=== PATIENT | female | born 1940 | race Caucasian/White ===

== ENCOUNTER → 2021-01-06 16:03 | Outpatient (CLI) | payer MEDICARE, SELFPAY ==
--- NOTE | ~2021-01-06 | XR_ITS ---
XR foot RT min 3V DATE: 01/06/2021 16:24 INDICATION: Right foot pain TECHNIQUE: 4 views COMPARISON: None FINDINGS: There is prominent diffuse osteopenia. There is prominent osteophytic change at the first metatarsophalangeal joint. No fracture or dislocation, periosteal reaction or bone destruction is detected. There is concern for any toe fractures, consider individual toe radiographs for more definitive evalu ation. IMPRESSION: Prominent diffuse osteopenia Prominent osteoarthritic change at the first metatarsophalangeal joint Reviewed, dictated and finalized at location B.
== END ==
PROVIDERS: PCP Family Medicine; Visit Provider Family Medicine
DX: M19.071 Primary osteoarthritis, right ankle and foot (principal)
CPT/HCPCS: 73630

== ENCOUNTER 2021-05-01 10:03 | Emergency (ER) | payer MEDICARE, SELFPAY ==
[2021-05-01] VITALS (23 sets, daily range): BP systolic 112–138; BP diastolic 59–101; PULSE 73–90; RESP 15–27; TEMP 36.2; O2SAT 95–99
--- NOTE | ~2021-05-01 | XR_ITS ---
EXAMINATION: XR chest 1V portable INDICATION: Confusion TECHNIQUE: Portable AP chest at 1100 hours COMPARISON: 07/26/2017 FINDINGS: The lungs are free of acute opacities. There is no pleural effusion or pneumothorax. Cardio megaly is noted. The visualized osseous structures are unremarkable. IMPRESSION: 1. Cardiomegaly. Reviewed, dictated and finalized at location A. CTOR REPORT IMPRESSION: 1. Cardiomegaly.
--- NOTE | 2021-05-01 10:29 | ED.GENADULT ---
HPI - General Adult General Chief complaint: Altered Mental Status <Alexandra Almonte PA-C - Last Filed: 05/01/21 13:17> Stated complaint: confusion off and on all week <Alexandra Almonte PA-C - Last Filed: 05/01/21 13:17> Time Seen by Provider: 05/01/21 10:25 <Alexandra Almonte PA-C - Last Filed: 05/01/21 13:17> Source: patient <Alexandra Almonte PA-C - Last Filed: 05/01/21 13:17> Mode of arrival: wheelchair <HUGO Plascencia Last Filed: 05/01/21 13:17> Limitations: no limitations <Alexandra Almonte PA-C - Last Filed: 05/01/21 13:17> History of Present Illness HPI narrative: Patient is brought in by her daughter today when she called her daughter and told her that she could not remember how to get dressed. Her daughter reports that this has been happening off and on for the past several weeks. The patient knows that she is confused, her words to her daughter today were I think I am losing my mind . She denies any other symptoms, no fever, no dysuria, no chest pain no shortness of breath. Daughter reports that she is worse in the morning and is a little clearer as the day goes on but still has some confusion. Patient was quite tearful when she told me she has not slept since losing her last May. <Alexandra Almonte PA-C - Last Filed: 05/01/21 13:17> Related Data Home medications: Home Medications Medication Instructions Recorded Confirmed multivitamin 1 tablet PO DAILY 06/11/20 06/11/20 potassium chloride 10 mEq 20 meq PO DAILY tablet 06/11/20 06/11/20 tablet,extended release simvastatin 20 mg tablet 20 mg PO DAILY 06/11/20 06/11/20 <Alexandra Almonte PA-C - Last Filed: 05/01/21 13:17> Allergies/adverse reactions: Allergies Allergy/AdvReac Type Severity Reaction Status Date / Time adhesive Allergy Mild Unknown Verified 03/16/21 13:27 tolnaftate AdvReac Severe Rash Verified 03/16/21 13:27 <Alexandra Almonte PA-C - Last Filed: 05/01/21 13:17> Review of Systems Review of Systems: All systems reviewed & are unremarkable except as noted in HPI and below <Alexandra Almonte PA-C - Last Filed: 05/01/21 13:17> [facility] Past Medical History Medical History: Medical History Chronic atrial fibrillation Chronic diastolic CHF (congestive heart failure) Encounter for immunization Essential hypertension Mixed hyperlipidemia Prediabetes Stasis dermatitis of both legs <Alexandra Almonte PA-C - Last Filed: 05/01/21 13:17> Surgical History Surgical History: Surgical History H/O resection of large bowel H/O splenectomy H/O: hysterectomy History of ankle surgery Hx of cholecystectomy <Alexandra Almonte PA-C - Last Filed: 05/01/21 13:17> Family History Family History: Family History Father Liver cancer Other Cerebrovascular accident Family history of arthritis <Alexandra Almonte PA-C - Last Filed: 05/01/21 13:17> Social History Social History: Social History Second hand tobacco smoke exposure: No Alcohol intake: never Substance use: never Substance use type: does not use Gender identity (if verbalized by the patient): Female <Alexandra Almonte PA-C - Last Filed: 05/01/21 13:17> Exam Const: General: no acute distress and alert <Alexandra Almonte PA-C - Last Filed: 05/01/21 13:17> Orientation/consciousness: patient oriented x3 <Alexandra Almonte PA-C - Last Filed: 05/01/21 13:17> HENMT: Head: normal to inspection <Alexandra Almonte PA-C - Last Filed: 05/01/21 13:17> Eyes: Conjunctivae: conjunctivae normal <Alexandra Almonte PA-C - Last Filed: 05/01/21 13:17> Pupils: Equal, round and reactive pupils present <Alexandra Almonte PA-C - Last Filed: 05/01/21 13:17> Neck: Neck: no lymphadenopathy
--- NOTE | 2021-05-01 10:40 | ECG_ITS ---
Measurements Intervals [place] Rate: 76 P: AR: 0 QRS: -23 QRSD: 102 T: 129 QT: 426 QTc: 479 Interpretive Statements ATRIAL FIBRILLATION FREQUENT VENTRICULAR PREMATURE COMPLEXES DELAYED PRECORDIAL R/S TRANSITION CONSIDER INFERIOR INFARCT, AGE INDETERMINATE BORDERLINE ST-T WAVE ABNORMALITY- ANT/HIGH LAT LEADS BASELINE ARTIFACT- I, II, III, AVR, AVL, AVF ABNORMAL ECG Electronically Signed On 05-01-2021 11:39:12 CERTIFIED MEETING PROFESSIONAL by Ever Archibald D.O.
[2021-05-01 11:05] LABS: Basophils Absolute Auto 0.1 K/mm3 (0.0-0.1); Basophils Percent Auto 0.6 % (0.2-1.2); Eosinophils Absolute Auto 0.1 K/mm3 (0-0.3); Eosinophils Percent Auto 0.4 % (0-4.4); Hematocrit 37.9 % (37.0-47.0); Hemoglobin 12.7 g/dL (12.0-15.0); Immature Granulocyte Absolute 0.07 K/mm3 (0.00-0.031); Immature Granulocyte Percent A 0.5 % (0-0.5); Lymphocytes Absolute Auto 3.75 K/mm3 (0.9-3.2); Lymphocytes Percent Auto 26.5 % (18.3-44.2); Mean Corpuscular HGB Conc 33.5 g/dl (32-36); Mean Corpuscular Hemoglobin 31.7 pg (26-34); Mean Corpuscular Volume 94.5 fl (80-100); Mean Platelet Volume 9.9 fl (7.4-10.4); Monocytes Absolute Auto 1.3 K/mm3 (0.1-0.6); Monocytes Percent Auto 9.1 % (2.6-8.5); Neutrophils Absolute Auto 8.9 K/mm3 (1.3-6.7); Neutrophils Percent Auto 62.9 % (45.5-73.1); Platelet Count Result 396 k/mm3 (150-375); Red Blood Count 4.01 M/mm3 (4.2-5.4); Red Cell Distribution Width 16.6 % (11.5-14.5); White Blood Count 14.2 K/mm3 (4.5-10.0)
[2021-05-01 11:13] LABS: Add Urine Microscopic? YES; Appearance Urine Cloudy (Clear); Bacteria Urine 3+ /hpf; Bilirubin Urine Negative (Negative); Blood Urine 2+ (Negative); Color Urine Yellow (Yellow); Glucose Urine UA Negative (Negative); Ketones Urine Negative (Negative); Leukocyte Esterase Ur 3+ LEU/UL (Negative); Mucus Urine Rare /lpf; Nitrate Urine Negative (Negative); Protein Urine Negative (Negative); Specific Grav Ur 1.006 (1.001-1.035); Squamous Epithelial Cell Urine Rare /hpf (Few); WBC Urine 21-30 /hpf
[2021-05-01 11:17] LABS: Alanine Aminotransferase 31 U/L (4-35); Albumin Level 3.4 g/dL (3.5-5.1); Alkaline Phosphatase 175 U/L (38-126); Anion Gap 6 mmol/L (8-16); Aspartate Amino Transferase 46 U/L (14-36); Bilirubin,Total 1.3 mg/dL (0.2-1.3); Blood Urea Nitrogen 15 mg/dL (7-17); Calcium 9.9 mg/dL (8.4-10.2); Carbon Dioxide 31 mmol/L (22-30); Chloride 103 mmol/L (98-107); Estimated CRCL calculation 52 ml/min; Estimated Glomerular Filt Rate 60; Glucose 140 mg/dL (65-110); Potassium 3.2 mmol/L (3.4-5.0); Sodium 140 mmol/L (137-145)
--- NOTE | 2021-05-01 13:18 | PCCCNOTE ---
Visited pt and her daughter to see if the patient has any needs prior to discharge. Pt states she has daughters and other family members that come by everyday and help her. She has a wheelchair at home that she uses. Daughter verifies pt has no needs
== END 2021-05-01 13:48 | disposition home or self-care (01) ==
PROVIDERS: Physician Assistant; Emergency Provider Emergency Medicine; PCP Family Medicine
DX: N39.0 Urinary tract infection, site not specified (principal); I48.20 Chronic atrial fibrillation, unspecified; I11.0 Hypertensive heart disease with heart failure; I50.32 Chronic diastolic (congestive) heart failure; E78.2 Mixed hyperlipidemia; R73.03 Prediabetes; Z90.81 Acquired absence of spleen
CPT/HCPCS: 36415; 51701; 71045; 80053; 81001; 85025; 87086; 87088; 93005; 96365; 99284; J0696

== ENCOUNTER 2021-05-17 10:35 | Inpatient (IN) | payer MEDICARE, SELFPAY ==
--- NOTE | ~2021-05-17 | CT_ITS ---
EXAMINATION: CT brain wo con INDICATION: Altered mental status COMPARISON: 10/12/2011 TECHNIQUE: Standard unenhanced head CT. The dose-length product (DLP) was 681.00 mGy-cm. The mA was a djusted according to patient size. Iterative reconstruction technique was employed. FINDINGS: There is no acute intraparenchymal hemorrhage. No evidence of mass lesion. No evidence of a cute infarction. Old cerebellar There is extensive periventricular and subcortical hypodensity probab ly related to small vessel ischemic disease. There is mild prominence of the sulci and ventricles rel ated to cerebral atrophy. Intracranial calcified cerebral atherosclerosis is noted. There are no extr a-axial collections. There is no mass effect or midline shift. The orbits and soft tissues are unrema rkable. There is mild mucosal thickening of the paranasal sinuses. IMPRESSION: 1. No acute intracranial abnormality. 2. Age related findings. Reviewed, dictated and finalized at location A. FEEDER
--- NOTE | ~2021-05-17 | US_ITS ---
EXAMINATION: US abdomen limited EXAM DATE: 05/18/2021 08:56 INDICATION: Elevated liver function tests. TECHNIQUE: Multiple grayscale and Doppler images of the abdomen right upper quadrant were obtained (alicia y a technologist who performed the scan) and subsequently reviewed. Comparison is made to prior exami nation from 07/22/2017. FINDINGS: The pancreatic head and body are normal in appearance. The pancreatic tail is not visualized. Regio ns of liver surface undulations without armando nodularity. There are no focal liver lesions identifie d. There is no evidence of intrahepatic biliary duct dilation. Portal venous flow was seen in the hepatopedal, normal direction and has normal Doppler waveform. No right-sided hydronephrosis. Common bile duct measures 4 mm, which is normal. The gallbladder fossa is unremarkable. IMPRESSION: Liver surface undulations without armando nodularity. Possible cirrhosis. Reviewed, dictated and finalized at location B. RNET [employer]ER[employer] SPECIALIST IMPRESSION: Liver surface undulations without armando nodularity. Possible cirrho sis.
--- NOTE | ~2021-05-17 | XR_ITS ---
EXAMINATION: XR shoulder LT min 2V DATE: 05/19/2021 16:22 INDICATION: Left shoulder injury and pain. TECHNIQUE: 3 views of left shoulder were obtained. COMPARISON: None. FINDINGS: Bone alignment is normal. No fracture. There is mild osteoarthritis of glenohumeral joint a nd severe osteoarthritis of acromioclavicular joint. Cardiomegaly is noted. IMPRESSION: 1. Polyarticular osteoarthritis. Reviewed, dictated and finalized at location A. SCALER
--- NOTE | ~2021-05-17 | CT_ITS ---
EXAMINATION: CT abdomen pelvis wo con DATE: 05/19/2021 11:09 INDICATION: Abdominal pain. Leukocytosis. TECHNIQUE: Computed tomography (CT) of the abdomen and pelvis was performed without intravenous contr ast. Automated exposure control and iterative reconstruction technique were employed. The dose-length product was 1614.51 mGy-cm. COMPARISON: CT abdomen and pelvis 08/03/2017 FINDINGS: The visualized portions of the lung bases demonstrate small pleural effusions, right worse than left. There is mild atelectasis bilaterally. Cardiomegaly is noted. No pericardial effusion. The liver is normal. There are changes of cholecystectomy. The spleen is absent. The pancreas and right adrenal gland are normal. 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 There is a 4 mm stone in right kidney. There is a 2.0 cm stone in left kidney. There are multiple diverticula in the bladder. There is diverticulosis of the colon without evidence of diverticulitis. There are no dilated loops of bowel. The appendix is normal. There are no patholog ically enlarged lymph nodes. There is no free intraperitoneal fluid. There is a chronic burst fractur e of L1. There is a chronic compression fracture of L4. There is moderate lumbar spondylosis. IMPRESSION: 1. Small pleural effusions. 2. Bilateral nonobstructing kidney stones. Reviewed, dictated and finalized at location A. EMENTATION CONSULTANT
[2021-05-17 10:38] VITALS: BP 121/62; PULSE 92; RESP 16; TEMP 36; O2SAT 100
[2021-05-17] MEDS: SODIUM CHLORIDE 0.9% IV 1,000 ML 999 ML IV CONT (12:47)
[2021-05-17 12:50] LABS: Basophils Absolute Auto 0.1 K/mm3 (0.0-0.1); Basophils Percent Auto 0.4 % (0.2-1.2); Eosinophils Percent Auto 0.1 % (0-4.4); Hematocrit 34.1 % (37.0-47.0); Hemoglobin 11.3 g/dL (12.0-15.0); Immature Granulocyte Absolute 0.09 K/mm3 (0.00-0.031); Immature Granulocyte Percent A 0.5 % (0-0.5); Lymphocytes Absolute Auto 1.91 K/mm3 (0.9-3.2); Lymphocytes Percent Auto 11.2 % (18.3-44.2); Mean Corpuscular HGB Conc 33.1 g/dl (32-36); Mean Corpuscular Hemoglobin 30.8 pg (26-34); Mean Corpuscular Volume 92.9 fl (80-100); Monocytes Absolute Auto 1.7 K/mm3 (0.1-0.6); Monocytes Percent Auto 9.9 % (2.6-8.5); Neutrophils Absolute Auto 13.3 K/mm3 (1.3-6.7); Neutrophils Percent Auto 77.9 % (45.5-73.1); Platelet Count Result 386 k/mm3 (150-375); Red Blood Count 3.67 M/mm3 (4.2-5.4); Red Cell Distribution Width 16.5 % (11.5-14.5); White Blood Count 17.1 K/mm3 (4.5-10.0)
[2021-05-17 12:56] LABS: Add Urine Microscopic? YES; Appearance Urine Cloudy (Clear); Bacteria Urine Trace /hpf; Bilirubin Urine Negative (Negative); Blood Urine 3+ (Negative); Color Urine Amber (Yellow); Glucose Urine UA Negative (Negative); Ketones Urine Negative (Negative); Leukocyte Esterase Ur 2+ LEU/UL (Negative); Mucus Urine Heavy /lpf; Nitrate Urine Negative (Negative); Protein Urine 2+ mg/dL (Negative); RBC Urine >75 /hpf (0-2); Specific Grav Ur 1.009 (1.001-1.035); WBC Urine >75 /hpf
[2021-05-17 13:00] LABS: Alanine Aminotransferase 36 U/L (4-35); Albumin Level 3.3 g/dL (3.5-5.1); Alkaline Phosphatase 142 U/L (38-126); Anion Gap 9 mmol/L (8-16); Aspartate Amino Transferase 83 U/L (14-36); Bilirubin,Total 1.9 mg/dL (0.2-1.3); Blood Urea Nitrogen 22 mg/dL (7-17); Calcium 9.1 mg/dL (8.4-10.2); Carbon Dioxide 23 mmol/L (22-30); Chloride 101 mmol/L (98-107); Estimated CRCL calculation 28 ml/min; Estimated Glomerular Filt Rate 29; Glucose 136 mg/dL (65-110); Potassium 3.1 mmol/L (3.4-5.0); Sodium 133 mmol/L (137-145)
[2021-05-17 13:15] VITALS: BP 126/70; PULSE 79; RESP 18; O2SAT 97
--- NOTE | 2021-05-17 13:47 | ED.WEAKNESS ---
HPI - Weakness General Chief complaint: Weakness Stated complaint: uti x 2 weeks Time Seen by Provider: 05/17/21 12:03 History of Present Illness HPI Narrative: Patient is an 81-year-old female who presents ER with altered mental status and concerns for UTI by family. Patient has recently been treated for UTI but she seems to be getting worse. She is not eating or drinking. She is urinating on herself. She has become more confused. Patient did fall out of her bed today.. No fevers or chills or sweats. Patient cannot provide history. Related Data Home Medications Medication Instructions Recorded Confirmed multivitamin 1 tablet PO DAILY 06/11/20 05/08/21 potassium chloride 10 mEq 20 meq PO DAILY tablet 06/11/20 05/08/21 tablet,extended release simvastatin 20 mg tablet 20 mg PO DAILY 06/11/20 05/08/21 Allergies Allergy/AdvReac Type Severity Reaction Status Date / Time adhesive Allergy Mild Unknown Verified 05/08/21 11:49 tolnaftate AdvReac Severe Rash Verified 05/08/21 11:49 Review of Systems Review of Systems: ROS unobtainable: Yes unobtainable due to mental status [facility] Past Medical History Medical History (Updated 05/17/21 @ 17:03 by Tracey Dunaway PA-C) Chronic anticoagulation Chronic atrial fibrillation Chronic diastolic CHF (congestive heart failure) Coronary artery disease Essential hypertension History of bleeding peptic ulcer (2006) Mixed hyperlipidemia Prediabetes Hemoglobin A1c was 5.8% in December 2020. Stasis dermatitis of both legs Surgical History Surgical History (Updated 05/17/21 @ 16:59 by Tracey Dunaway PA-C) History of cholecystectomy (2017) History of heart artery stent (2003) History of open reduction and internal fixation (ORIF) procedure (2011) Left ankle fracture. History of resection of small bowel (1973) Jejunal resection. History of splenectomy (1944) History of total abdominal hysterectomy and bilateral salpingo-oophorectomy (1979) Family History Family History Father Liver cancer Mother Congestive heart failure Other Cerebrovascular accident Family history of arthritis Social History Social History (Updated 05/17/21 @ 16:58 by Tracey Dunaway PA-C) Social History: Surrogate decision maker: Darcy Vogeler, daughter. Code status: Full code. Smoking status: Never smoker Second hand tobacco smoke exposure: No Alcohol intake: never Substance use: never Substance use type: does not use Additional living arrangements comments: The patient lives in her own home. She has 3 children. Additional occupation/education comments: Retired. Spiritual care concerns: No Exam Narrative: GENERAL: Chronically ill-appearing, well-nourished, and in no acute distress. HEAD: Normocephalic, atraumatic. EYES: PERRL and EOMI. ENT: Mucous membranes moist. CHEST: Clear to auscultation. No respiratory distress. HEART: Regular rate and rhythm. Normal peripheral pulses. ABDOMEN: Soft, nontender, nondistended. EXTREMITIES: Normal range of motion. No edema. SKIN: Warm, dry, no rash. NEURO: Alert and oriented x1. Course Course Emergency Course: Admit to hospitalist service. Will start on ceftriaxone. Patient will be hydrated. Family informed of diagnosis and treatment plan. Vital Signs Vital signs: Vital Signs Temperature 96.8 F L 05/17/21 10:38 Pulse Rate 92 05/17/21 10:38 Respiratory Rate 16 05/17/21 10:38 Blood Pressure 121/62 05/17/21 10:38 Pulse Oximetry 100 05/17/21 10:38 Temperature 96.7 F L 05/17/21 21:38 Pulse Rate 79 05/17/21 21:38 Respiratory Rate 14 05/17/21 21:38 Blood Pressure 113/52 L 05/17/21 21:38 Pulse Oximetry 95 05/17/21 21:38 MDM - Weakness Lab Data Result diagrams: 05/17/21 12:42 05/17/21 17:24 Labs: Lab Results 05/17/21 05/17/21 05/17/21 Range/Units 12:42 12:42 12:4
[2021-05-17 15:00] VITALS: BP 120/74; PULSE 89; RESP 20; O2SAT 100
[2021-05-17 15:09] LABS: INR 1.8; Partial Thromboplastin Time 37.1 SECONDS (22.3-36.8); Prothrombin Time 20.1 Seconds (11.1-14.7)
--- NOTE | 2021-05-17 16:15 | PM.IMHP ---
H&P: HPI History of Present Illness Date/Time: 05/17/21 16:15 Chief Complaint: Weakness. Narrative: This is an 81-year-old female with atrial fibrillation, congestive heart failure, hypertension, coronary artery disease, and several other comorbidities who presented to the emergency department earlier today via EMS from home for evaluation of generalized weakness. The patient is also somewhat confused with regards to the events that happened today and as such some of the following is supplemented via a review of her electronic medical records. The patient lives in her own home and she was found lying on the floor by her bed by family members. She was too weak to get herself up and was reportedly quite confused and thus she was brought in for evaluation. The patient does not really remember this but she does mention having urinary symptoms for the last couple of weeks and in fact she was seen in the emergency department on 05/01/2021 at which time she had an abnormal urinalysis. She was discharged on nitrofurantoin which she completed however her symptoms never really improved. It should be noted that her urine culture grew out mixed lamar suggesting probable contamination. In any event, she has been feeling weak since that time with a poor appetite though she denies nausea and vomiting. She does not recall how she ended up on the ground today though she does not think that she fell. At the time my evaluation she reports feeling a bit better and she has no complaints. Review of Systems Review of Systems: Twelve systems were reviewed. Denies fever, chills, and sweats. No headache or vertigo. She denies focal weakness and paresthesias. No cold or flu symptoms. She denies cough and shortness of breath. No chest pain or pleuritic pain. She has had a decrease in appetite but denies nausea and vomiting. She also denies diarrhea. She has chronic lower extremity edema with erythema and blistering which she does not believes any worse than usual. Except as documented, all other systems were reviewed and are negative. [facility] Past Medical History Medical History Chronic anticoagulation Chronic atrial fibrillation Chronic diastolic CHF (congestive heart failure) Coronary artery disease Essential hypertension History of bleeding peptic ulcer (2006) Mixed hyperlipidemia Prediabetes Hemoglobin A1c was 5.8% in December 2020. Stasis dermatitis of both legs Surgical History Surgical History (Updated 05/17/21 @ 16:59 by Tracey Dunaway PA-C) History of cholecystectomy (2018) History of heart artery stent (2003) History of open reduction and internal fixation (ORIF) procedure (2011) Left ankle fracture. History of resection of small bowel (1973) Jejunal resection. History of splenectomy (1944) History of total abdominal hysterectomy and bilateral salpingo-oophorectomy (1979) Family History Family History Father Liver cancer Mother Congestive heart failure Other Cerebrovascular accident Family history of arthritis Social History Social History (Updated 05/17/21 @ 23:24 by Tracey Dunaway PA-C) Social History: Surrogate decision maker: Darcy Lackey, daughter. Code status: Full code. Smoking status: Never smoker Second hand tobacco smoke exposure: No Alcohol intake: never Substance use: never Substance use type: does not use Additional living arrangements comments: The patient lives in her own home. She has 3 children. Additional occupation/education comments: Retired. Spiritual care concerns: No Meds Home Medications and Allergies Home Medications Medication Instructions Recorded Confirmed Type multivitamin 1 tablet PO DAILY 06/11/20 05/08/21 History potassium chloride 10 mEq 20 meq PO DAILY tablet 06/11/20 05/08/21 History tablet,extended release simvastatin 20 mg table
[2021-05-17 17:24] VITALS: BP 111/49; PULSE 89; RESP 18; TEMP 36.3; O2SAT 96
[2021-05-17 17:42] LABS: Lactic Acid Reflex 1.7 mmol/L (0.7-2.1)
[2021-05-17 17:43] LABS: Anion Gap 6 mmol/L (8-16); Blood Urea Nitrogen 19 mg/dL (7-17); Calcium 8.6 mg/dL (8.4-10.2); Carbon Dioxide 25 mmol/L (22-30); Chloride 104 mmol/L (98-107); Creatine Kinase 631 U/L (30-135); Estimated CRCL calculation 35 ml/min; Estimated Glomerular Filt Rate 39; Glucose 143 mg/dL (65-110); Magnesium 1.7 mg/dL (1.6-2.3); Potassium 3.4 mmol/L (3.4-5.0); Sodium 135 mmol/L (137-145)
--- NOTE | 2021-05-17 17:57 | ADMGEN ---
This patient, Evelyn Gale, was admitted to Medical Room 345-01. Patient/family oriented to hospital policies and general routines including ID bracelet, bed and alarms, visiting hours, pain management, procedures, bathroom and other care routines, personal items, smoking policy, room service/diet, and visiting hours. Information on how to activate the Rapid Response Team has been discussed. Patient/Family are encouraged to report perceived risks to care and to ask questions if they do not understand what they are told or what they should do.
[2021-05-17 18:40] LABS: Vitamin B12 > 1000.0 pg/mL (239-931)
--- NOTE | 2021-05-17 18:57 | PC.NURSE ---
Pharmacy is closed can't verify home medications, patient is alert to self. Unable to give me correct info.
[2021-05-17] MEDS: SODIUM CHLORIDE 0.9% IV 1,000 ML 100 ML IV CONT (19:04)
[2021-05-17 20:00] VITALS: PULSE 89; RESP 18; O2SAT 96
[2021-05-17 21:38] VITALS: BP 113/52; PULSE 79; RESP 14; TEMP 35.9; O2SAT 95
[2021-05-18] MEDS: SODIUM CHLORIDE 0.9% IV 1,000 ML 100 ML IV CONT (04:50)
[2021-05-18 06:00] VITALS: BP 118/60; PULSE 82; RESP 16; TEMP 36; O2SAT 96
[2021-05-18 07:50] LABS: Hematocrit 34.5 % (37.0-47.0); Hemoglobin 10.7 g/dL (12.0-15.0); Mean Corpuscular Hemoglobin 31.8 pg (26-34); Mean Corpuscular Volume 102.4 fl (80-100); Platelet Count Result 308 k/mm3 (150-375); Red Blood Count 3.37 M/mm3 (4.2-5.4); Red Cell Distribution Width 17.7 % (11.5-14.5); White Blood Count 10.3 K/mm3 (4.5-10.0)
[2021-05-18 08:18] LABS: Alanine Aminotransferase 32 U/L (4-35); Albumin Level 2.4 g/dL (3.5-5.1); Alkaline Phosphatase 117 U/L (38-126); Anion Gap 5 mmol/L (8-16); Aspartate Amino Transferase 78 U/L (14-36); Bilirubin,Total 1.4 mg/dL (0.2-1.3); Blood Urea Nitrogen 14 mg/dL (7-17); Calcium 8.2 mg/dL (8.4-10.2); Carbon Dioxide 23 mmol/L (22-30); Chloride 110 mmol/L (98-107); Creatine Kinase 403 U/L (30-135); Estimated CRCL calculation 56 ml/min; Estimated Glomerular Filt Rate > 60; Glucose 102 mg/dL (65-110); Magnesium 1.7 mg/dL (1.6-2.3); Phosphorus 3.4 mg/dL (2.5-4.5); Potassium 3.3 mmol/L (3.4-5.0); Sodium 138 mmol/L (137-145)
--- NOTE | 2021-05-18 08:27 | PCOTNOTE ---
Attempted to evaluate for occupational therapy. Pt. leaving for CT scan. Will follow-up when available
[2021-05-18 09:22] LABS: Hepatitis B Surface Antigen Negative (Negative)
[2021-05-18 09:28] LABS: HAV RESULT Negative (Negative); Hepatitis B Core IgM Result Negative (Negative)
[2021-05-18 09:39] LABS: Hepatitis C Virus Antibody Negative (Negative)
[2021-05-18] MEDS: amLODIPine BESYLATE 5 MG TABLET 10 MG PO (10:00)
[2021-05-18] MEDS: MULTIVITAMINS THERAPEUTIC TAB (*BKC) 1 TABLET PO (10:00)
[2021-05-18] MEDS: APIXABAN 5 MG TABLET PO ×2 (10:00→17:21)
[2021-05-18] MEDS: FUROSEMIDE 40 MG TABLET PO (10:00)
[2021-05-18] MEDS: SIMVASTATIN 20 MG TABLET PO (10:01)
[2021-05-18] MEDS: NEBIVOLOL HCL 5 MG TABLET PO (10:01)
[2021-05-18] MEDS: PANTOPRAZOLE 40 MG TABLET PO (10:01)
[2021-05-18] MEDS: TAMSULOSIN HCL 0.4 MG CAPSULE PO (10:01)
[2021-05-18] MEDS: POTASSIUM CHLORIDE 10 MEQ TABLET.ER 20 MEQ PO ×2 (10:01→17:21)
--- NOTE | 2021-05-18 10:11 | PM.IMPN ---
Progress Note: A&P Assessment and Plan (1) Urinary tract infection: Code(s): N39.0 - Urinary tract infection, site not specified Status: Acute Assessment and Plan: UA consistent with UTI -continue ceftriaxone -monitor urine cultures and adjust therapy as needed -will likely be able to discharge when this is back to ensure she is on appropriate antibiotics since she also had symptoms last month of this with no resolution with Macrobid (2) Acute kidney injury: Code(s): N17.9 - Acute kidney failure, unspecified Status: Acute Assessment and Plan: Noted on labs and resolved with IV fluids - CK improving, will stop IV fluids and encourage oral hydration - no abdominal pain or flank pain suggesting pyelonephritis - could be due to decreased oral intake and worsened with Lasix (3) Elevated LFTs: Code(s): R79.89 - Other specified abnormal findings of blood chemistry Status: Acute Assessment and Plan: Improved -ultrasound shows possible cirrhosis -could be acutely elevated due to elevated CK - no abdominal pain - hepatitis negative (4) Dehydration: Code(s): E86.0 - Dehydration Status: Acute Assessment and Plan: resolved (5) Essential hypertension: Code(s): I10 - Essential (primary) hypertension Status: Acute Assessment and Plan: last blood pressure 118/60 - continue amlodipine, Lasix and Bystolic (6) Chronic anticoagulation: Code(s): Z79.01 - medical terminologist (current) use of anticoagulants Status: Acute Assessment and Plan: Continue apixaban. (7) Chronic diastolic CHF (congestive heart failure): Code(s): I50.32 - Chronic diastolic (congestive) heart failure Status: Acute Assessment and Plan: euvolemic (8) Rhabdomyolysis: Code(s): M62.82 - Rhabdomyolysis Status: Acute Assessment and Plan: CK improving (9) Left leg cellulitis: Code(s): L03.116 - Cellulitis of left lower limb Status: Acute Assessment and Plan: previous provider noted worsening erythema to the left leg which apparently has resolved back to her baseline as both of her legs appear slightly erythematous but she said this is better than it has been - continue ceftriaxone (10) Metabolic encephalopathy: Code(s): G93.41 - Metabolic encephalopathy Status: Acute Assessment and Plan: resolved.Secondary to infection and dehydration. 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 She says she cries every day. She is absolutely not interested in any type of therapy. She has tried BuSpar but I do not think it really helped according to the patient. I would follow-up with Dr. Pickens, her primary care physician, and possibly some consider starting citalopram or another SSRI since she is uninterested in doing therapy which would be her best bet. She has good family support. (12) Chronic atrial fibrillation: Code(s): I48.20 - Chronic atrial fibrillation, unspecified Status: Acute Assessment and Plan: Chronic and rate controlled -continue bystolic and eliquis Time Spent With Patient Time with patient: 25 - 35 minutes Subjective Date/time seen: 05/18/21 10:11 Interval history: Pt is a 81-year-old female here for fall and UTI. patient was seen today and states that she is feeling okay. She is able to transfer with therapy today and feels like she is at her baseline. She is sad today, and every day, about her dying. She says that she often sees him in the room and hears her him. She sometimes does not realize it is not reality and will try and go to his chair. She thin
[2021-05-18 14:00] VITALS: BP 117/73; PULSE 68; RESP 16; TEMP 35.9; O2SAT 96
[2021-05-18] MEDS: busPIRone HCL 5 MG TABLET PO (17:31)
[2021-05-18 21:04] VITALS: BP 99/54; PULSE 75; RESP 16; TEMP 36; O2SAT 95
[2021-05-19] MEDS: busPIRone HCL 5 MG TABLET PO (00:28)
[2021-05-19 03:25] VITALS: BP 120/65; PULSE 75; RESP 16; TEMP 35.9; O2SAT 97
[2021-05-19 05:58] LABS: Basophils Absolute Auto 0.1 K/mm3 (0.0-0.1); Basophils Percent Auto 0.7 % (0.2-1.2); Eosinophils Absolute Auto 0.3 K/mm3 (0-0.3); Eosinophils Percent Auto 1.9 % (0-4.4); Hematocrit 32.3 % (37.0-47.0); Hemoglobin 10.7 g/dL (12.0-15.0); Immature Granulocyte Absolute 0.12 K/mm3 (0.00-0.031); Immature Granulocyte Percent A 0.9 % (0-0.5); Lymphocytes Absolute Auto 4.02 K/mm3 (0.9-3.2); Lymphocytes Percent Auto 28.6 % (18.3-44.2); Mean Corpuscular HGB Conc 33.1 g/dl (32-36); Mean Corpuscular Hemoglobin 30.8 pg (26-34); Mean Corpuscular Volume 93.1 fl (80-100); Mean Platelet Volume 9.8 fl (7.4-10.4); Monocytes Absolute Auto 1.9 K/mm3 (0.1-0.6); Monocytes Percent Auto 13.7 % (2.6-8.5); Neutrophils Absolute Auto 7.6 K/mm3 (1.3-6.7); Neutrophils Percent Auto 54.2 % (45.5-73.1); Nucleated Red Blood Cells Perc 0.2 % (0.0-0.2); Platelet Count Result 390 k/mm3 (150-375); Red Blood Count 3.47 M/mm3 (4.2-5.4); Red Cell Distribution Width 17.1 % (11.5-14.5); White Blood Count 14.1 K/mm3 (4.5-10.0)
[2021-05-19 06:14] LABS: Alanine Aminotransferase 35 U/L (4-35); Albumin Level 2.7 g/dL (3.5-5.1); Alkaline Phosphatase 130 U/L (38-126); Anion Gap 4 mmol/L (8-16); Aspartate Amino Transferase 67 U/L (14-36); Blood Urea Nitrogen 13 mg/dL (7-17); Calcium 8.2 mg/dL (8.4-10.2); Carbon Dioxide 24 mmol/L (22-30); Chloride 106 mmol/L (98-107); Creatine Kinase 200 U/L (30-135); Estimated CRCL calculation 56 ml/min; Estimated Glomerular Filt Rate > 60; Glucose 131 mg/dL (65-110); Potassium 3.4 mmol/L (3.4-5.0); Sodium 134 mmol/L (137-145)
[2021-05-19] MEDS: ACETAMINOPHEN 325 MG TABLET 650 MG PO (07:56)
[2021-05-19] MEDS: amLODIPine BESYLATE 5 MG TABLET 10 MG PO (08:14)
[2021-05-19 08:15] VITALS: PULSE 86
[2021-05-19] MEDS: FUROSEMIDE 40 MG TABLET PO (08:15)
[2021-05-19] MEDS: NEBIVOLOL HCL 5 MG TABLET PO (08:15)
[2021-05-19] MEDS: APIXABAN 5 MG TABLET PO ×2 (08:15→16:27)
[2021-05-19] MEDS: MULTIVITAMINS THERAPEUTIC TAB (*BKC) 1 TABLET PO (08:15)
[2021-05-19] MEDS: PANTOPRAZOLE 40 MG TABLET PO (08:16)
[2021-05-19] MEDS: POTASSIUM CHLORIDE 10 MEQ TABLET.ER 20 MEQ PO ×2 (08:16→16:27)
[2021-05-19] MEDS: SIMVASTATIN 20 MG TABLET PO (08:17)
[2021-05-19] MEDS: TAMSULOSIN HCL 0.4 MG CAPSULE PO (08:17)
--- NOTE | 2021-05-19 11:51 | PM.IMPN ---
Progress Note: A&P Assessment and Plan (1) Urinary tract infection: Code(s): N39.0 - Urinary tract infection, site not specified Status: Acute Assessment and Plan: UA consistent with UTI -urine cx growing mixed lamar but it has no squamous cells and looks very infectious. I have called the lab and asked them to grow it out since her WBC went up today. Blood cultures with NGTD. -continue ceftriaxone -will likely be able to discharge when this is back to ensure she is on appropriate antibiotics since she also had symptoms last month of this with no resolution with Macrobid (2) Acute kidney injury: Code(s): N17.9 - Acute kidney failure, unspecified Status: Acute Assessment and Plan: Noted on labs and resolved with IV fluids - CK improving, continue oral hydration - no abdominal pain or flank pain suggesting pyelonephritis - could be due to decreased oral intake and worsened with Lasix (3) Elevated LFTs: Code(s): R79.89 - Other specified abnormal findings of blood chemistry Status: Acute Assessment and Plan: Improved -ultrasound shows possible cirrhosis -could be acutely elevated due to elevated CK - no abdominal pain - hepatitis negative (4) Dehydration: Code(s): E86.0 - Dehydration Status: Acute Assessment and Plan: resolved (5) Essential hypertension: Code(s): I10 - Essential (primary) hypertension Status: Acute Assessment and Plan: last blood pressure 120/65 - continue amlodipine, Lasix and Bystolic (6) Chronic anticoagulation: Code(s): Z79.01 - custodial (current) use of anticoagulants Status: Acute Assessment and Plan: Continue apixaban. (7) Chronic diastolic CHF (congestive heart failure): Code(s): I50.32 - Chronic diastolic (congestive) heart failure Status: Acute Assessment and Plan: euvolemic (8) Rhabdomyolysis: Code(s): M62.82 - Rhabdomyolysis Status: Acute Assessment and Plan: CK improving (9) Left leg cellulitis: Code(s): L03.116 - Cellulitis of left lower limb Status: Acute Assessment and Plan: previous provider noted worsening erythema to the left leg which apparently has resolved back to her baseline as both of her legs appear slightly erythematous but she said this is better than it has been - continue ceftriaxone (10) Metabolic encephalopathy: Code(s): G93.41 - Metabolic encephalopathy Status: Acute Assessment and Plan: resolved.Secondary to infection and dehydration. 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 She says she cries every day. Yesterday she said she was not interested in therapy but when talking today to her she may consider contacting a therapist over the phone so she doesn't have to leave her house. She has tried BuSpar but I do not think it really helped according to the patient. She does not want to try any other medications. I would follow-up with Dr. Pickens, her primary care physician, and possibly some consider starting citalopram or another SSRI if she won't do therapy or maybe in addition to therapy. (12) Chronic atrial fibrillation: Code(s): I48.20 - Chronic atrial fibrillation, unspecified Status: Acute Assessment and Plan: Chronic and rate controlled -continue bystolic and eliquis Subjective Date/time seen: 05/19/21 11:51 Interval history: Pt is a 81-year-old female here for fall and UTI. patient was seen today with family at bedside and is doing okay. Her dysuria has resolved and she doesn't remember telling me it hurt yesterday. She has no fevers, chills, nausea, vomi
[2021-05-19 14:00] VITALS: BP 117/68; PULSE 68; RESP 18; TEMP 36.1; O2SAT 96
[2021-05-19 20:00] VITALS: PULSE 68; RESP 18; O2SAT 96
[2021-05-19 20:52] LABS: Glucose Point of Care 149 mg/dl (65-105)
[2021-05-19 22:00] VITALS: BP 118/64; PULSE 72; RESP 18; TEMP 36.1; O2SAT 96
[2021-05-20] MEDS: ACETAMINOPHEN 325 MG TABLET 650 MG PO ×2 (04:41→14:26)
[2021-05-20 05:16] VITALS: BP 134/71; PULSE 77; RESP 16; TEMP 36.6; O2SAT 93
[2021-05-20 06:35] LABS: Basophils Absolute Auto 0.1 K/mm3 (0.0-0.1); Basophils Percent Auto 0.7 % (0.2-1.2); Eosinophils Absolute Auto 0.3 K/mm3 (0-0.3); Hematocrit 34.1 % (37.0-47.0); Hemoglobin 11.1 g/dL (12.0-15.0); Immature Granulocyte Absolute 0.09 K/mm3 (0.00-0.031); Immature Granulocyte Percent A 0.7 % (0-0.5); Lymphocytes Absolute Auto 2.51 K/mm3 (0.9-3.2); Lymphocytes Percent Auto 18.1 % (18.3-44.2); Mean Corpuscular HGB Conc 32.6 g/dl (32-36); Mean Corpuscular Hemoglobin 30.8 pg (26-34); Mean Corpuscular Volume 94.7 fl (80-100); Mean Platelet Volume 10.1 fl (7.4-10.4); Monocytes Absolute Auto 1.8 K/mm3 (0.1-0.6); Monocytes Percent Auto 12.7 % (2.6-8.5); Neutrophils Absolute Auto 9.1 K/mm3 (1.3-6.7); Neutrophils Percent Auto 65.8 % (45.5-73.1); Nucleated Red Blood Cells Perc 0.3 % (0.0-0.2); Platelet Count Result 409 k/mm3 (150-375); Red Cell Distribution Width 17.2 % (11.5-14.5); White Blood Count 13.8 K/mm3 (4.5-10.0)
[2021-05-20 07:09] LABS: Alanine Aminotransferase 35 U/L (4-35); Albumin Level 2.7 g/dL (3.5-5.1); Alkaline Phosphatase 117 U/L (38-126); Anion Gap 5 mmol/L (8-16); Aspartate Amino Transferase 68 U/L (14-36); Bilirubin,Total 1.2 mg/dL (0.2-1.3); Blood Urea Nitrogen 10 mg/dL (7-17); Calcium 7.9 mg/dL (8.4-10.2); Carbon Dioxide 24 mmol/L (22-30); Chloride 108 mmol/L (98-107); Estimated CRCL calculation 73 ml/min; Estimated Glomerular Filt Rate > 60; Glucose 121 mg/dL (65-110); Magnesium 1.5 mg/dL (1.6-2.3); Sodium 137 mmol/L (137-145)
[2021-05-20] MEDS: MAGNESIUM SULF 2 GM/WATER 50ML 2 GM/50 ML BAG IVPB (07:28)
--- NOTE | 2021-05-20 08:19 | PCOTNOTE ---
Attempted to see patient this date at 08:16am. Patient asleep upon arrival, patient easily awoke upon knocking. Patient was surprised breakfast was here already. Patient able to bring all food to mouth and feed self with set up. Declined all ADLs. Asked CANDE to put butter and jelly on wolof muffin and make her hot armani. Patient confused this date I'm just talking to my daughter, seeing if shes going into work then turned her head and talked to an empty chair. Nursing aware.
[2021-05-20] MEDS: TAMSULOSIN HCL 0.4 MG CAPSULE PO (09:01)
[2021-05-20] MEDS: POTASSIUM CHLORIDE 10 MEQ TABLET.ER 20 MEQ PO ×2 (09:01→16:22)
[2021-05-20 09:02] VITALS: PULSE 78
[2021-05-20] MEDS: FUROSEMIDE 40 MG TABLET PO (09:02)
[2021-05-20] MEDS: APIXABAN 5 MG TABLET PO ×2 (09:02→16:22)
[2021-05-20] MEDS: MULTIVITAMINS THERAPEUTIC TAB (*BKC) 1 TABLET PO (09:02)
[2021-05-20] MEDS: SIMVASTATIN 20 MG TABLET PO (09:02)
[2021-05-20] MEDS: NEBIVOLOL HCL 5 MG TABLET PO (09:02)
[2021-05-20] MEDS: PANTOPRAZOLE 40 MG TABLET PO (09:02)
[2021-05-20] MEDS: amLODIPine BESYLATE 5 MG TABLET 10 MG PO (09:03)
--- NOTE | 2021-05-20 12:01 | PM.IMPN ---
Progress Note: A&P Assessment and Plan (1) Urinary tract infection: Code(s): N39.0 - Urinary tract infection, site not specified Status: Acute Assessment and Plan: UA consistent with UTI -urine cx growing mixed lamar but it has no squamous cells and looks very infectious. I called lab and they state that it is growing Klebsiella and Proteus and the sensitivities will be back tomorrow. -continue ceftriaxone - Will likely discharge home tomorrow once sensitivities have been posted (2) Acute kidney injury: Code(s): N17.9 - Acute kidney failure, unspecified Status: Acute Assessment and Plan: Noted on labs and resolved with IV fluids - CK improving, continue oral hydration - no abdominal pain or flank pain suggesting pyelonephritis - could be due to decreased oral intake and worsened with Lasix (3) Elevated LFTs: Code(s): R79.89 - Other specified abnormal findings of blood chemistry Status: Acute Assessment and Plan: Improved -ultrasound shows possible cirrhosis -could be acutely elevated due to elevated CK - no abdominal pain - hepatitis negative (4) Dehydration: Code(s): E86.0 - Dehydration Status: Acute Assessment and Plan: resolved (5) Essential hypertension: Code(s): I10 - Essential (primary) hypertension Status: Acute Assessment and Plan: last blood pressure 134/71 - continue amlodipine, Lasix and Bystolic (6) Chronic anticoagulation: Code(s): Z79.01 - USP (current) use of anticoagulants Status: Acute Assessment and Plan: Continue apixaban. (7) Chronic diastolic CHF (congestive heart failure): Code(s): I50.32 - Chronic diastolic (congestive) heart failure Status: Acute Assessment and Plan: euvolemic (8) Rhabdomyolysis: Code(s): M62.82 - Rhabdomyolysis Status: Acute Assessment and Plan: CK improving (9) Left leg cellulitis: Code(s): L03.116 - Cellulitis of left lower limb Status: Acute Assessment and Plan: previous provider noted worsening erythema to the left leg which apparently has resolved back to her baseline as both of her legs appear erythematous but she said this is better than it has been - continue ceftriaxone (10) Metabolic encephalopathy: Code(s): G93.41 - Metabolic encephalopathy Status: Acute Assessment and Plan: resolved.Secondary to infection and dehydration. 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 She says she cries every day. Yesterday she said she was not interested in therapy but when talking today to her she may consider contacting a therapist over the phone so she doesn't have to leave her house. She has tried BuSpar but I do not think it really helped according to the patient. She does not want to try any other medications. I would follow-up with Dr. Pickens, her primary care physician, and possibly some consider starting citalopram or another SSRI if she won't do therapy or maybe in addition to therapy. (12) Chronic atrial fibrillation: Code(s): I48.20 - Chronic atrial fibrillation, unspecified Status: Acute Assessment and Plan: Chronic and rate controlled -continue bystolic and eliquis Subjective Date/time seen: 05/20/21 12:01 Interval history: Pt is a 81-year-old female here for fall and UTI. patient was seen today with family at bedside and is doing okay. Her dysuriaAnd she has no complaints other than wanting to go home. She has no fevers, chills, nausea, vomiting, diarrhea, constipation, cp, or sob. She is very tearful again today. Son in law at bedside And plan disc
[2021-05-20 14:00] VITALS: BP 118/94; PULSE 72; RESP 18; TEMP 36.8; O2SAT 96
[2021-05-20 20:00] VITALS: PULSE 85; RESP 22; O2SAT 95
[2021-05-20 20:46] VITALS: BP 118/76; PULSE 85; RESP 22; TEMP 36.6; O2SAT 95
[2021-05-21 00:59] VITALS: O2SAT 95
[2021-05-21] MEDS: ACETAMINOPHEN 325 MG TABLET 650 MG PO (05:49)
[2021-05-21 06:02] VITALS: BP 128/70; PULSE 81; RESP 17; TEMP 36.6; O2SAT 93
[2021-05-21 06:39] LABS: Basophils Absolute Auto 0.1 K/mm3 (0.0-0.1); Basophils Percent Auto 0.8 % (0.2-1.2); Eosinophils Absolute Auto 0.6 K/mm3 (0-0.3); Eosinophils Percent Auto 3.8 % (0-4.4); Hematocrit 35.8 % (37.0-47.0); Hemoglobin 11.5 g/dL (12.0-15.0); Immature Granulocyte Absolute 0.14 K/mm3 (0.00-0.031); Immature Granulocyte Percent A 0.9 % (0-0.5); Lymphocytes Absolute Auto 4.84 K/mm3 (0.9-3.2); Lymphocytes Percent Auto 30.5 % (18.3-44.2); Mean Corpuscular HGB Conc 32.1 g/dl (32-36); Mean Corpuscular Hemoglobin 31.2 pg (26-34); Mean Platelet Volume 10.9 fl (7.4-10.4); Monocytes Percent Auto 12.4 % (2.6-8.5); Neutrophils Absolute Auto 8.2 K/mm3 (1.3-6.7); Neutrophils Percent Auto 51.6 % (45.5-73.1); Nucleated Red Blood Cells Perc 0.3 % (0.0-0.2); Platelet Count Result 284 k/mm3 (150-375); Red Blood Count 3.69 M/mm3 (4.2-5.4); Red Cell Distribution Width 17.2 % (11.5-14.5); White Blood Count 15.9 K/mm3 (4.5-10.0)
[2021-05-21] MEDS: FUROSEMIDE 40 MG TABLET PO (08:05)
[2021-05-21] MEDS: TAMSULOSIN HCL 0.4 MG CAPSULE PO (08:05)
[2021-05-21] MEDS: MAGNESIUM OXIDE 400 MG TABLET PO (08:05)
[2021-05-21] MEDS: APIXABAN 5 MG TABLET PO (08:05)
[2021-05-21] MEDS: amLODIPine BESYLATE 5 MG TABLET 10 MG PO (08:05)
[2021-05-21 08:06] VITALS: PULSE 68
[2021-05-21] MEDS: MULTIVITAMINS THERAPEUTIC TAB (*BKC) 1 TABLET PO (08:06)
[2021-05-21] MEDS: SIMVASTATIN 20 MG TABLET PO (08:06)
[2021-05-21] MEDS: PANTOPRAZOLE 40 MG TABLET PO (08:06)
[2021-05-21] MEDS: NEBIVOLOL HCL 5 MG TABLET PO (08:06)
[2021-05-21] MEDS: POTASSIUM CHLORIDE 10 MEQ TABLET.ER 20 MEQ PO (08:06)
[2021-05-21 08:56] LABS: Magnesium 1.8 mg/dL (1.6-2.3)
--- NOTE | 2021-05-21 11:53 | PM.DS ---
DS: Admitting Diagnosis Discharge Date 05/21/21 Admitting Diagnosis UTI DS: Discharge Diagnosis Discharge Diagnosis (1) Urinary tract infection: Code(s): N39.0 - Urinary tract infection, site not specified Status: Acute Assessment and Plan: Urine cx grew proteus and klebsiella -She received ceftriaxone while hospitalized and transitioned to augmentin (which was sensitive) -WBC still increased but suspect this will improve with treatment. Blood cultures negative. No diarrhea. -plan to recheck cbc outpt in 2 weeks to ensure this improves. (2) Acute kidney injury: Code(s): N17.9 - Acute kidney failure, unspecified Status: Acute Assessment and Plan: Noted on labs and resolved with IV fluids - CK improved, continue oral hydration - no abdominal pain or flank pain suggesting pyelonephritis - could be due to decreased oral intake and worsened with Lasix (3) Elevated LFTs: Code(s): R79.89 - Other specified abnormal findings of blood chemistry Status: Acute Assessment and Plan: Improved -ultrasound shows possible cirrhosis -could be acutely elevated due to elevated CK - no abdominal pain - hepatitis negative (4) Dehydration: Code(s): E86.0 - Dehydration Status: Acute Assessment and Plan: resolved (5) Essential hypertension: Code(s): I10 - Essential (primary) hypertension Status: Acute Assessment and Plan: last blood pressure 128/70 - continue amlodipine, Lasix and Bystolic (6) Chronic anticoagulation: Code(s): Z79.01 - FPC (current) use of anticoagulants Status: Acute Assessment and Plan: Continue apixaban. (7) Chronic diastolic CHF (congestive heart failure): Code(s): I50.32 - Chronic diastolic (congestive) heart failure Status: Acute Assessment and Plan: euvolemic (8) Rhabdomyolysis: Code(s): M62.82 - Rhabdomyolysis Status: Acute Assessment and Plan: CK improved -slightly elevated likely due to fall (9) Left leg cellulitis: Code(s): L03.116 - Cellulitis of left lower limb Status: Acute Assessment and Plan: previous provider noted worsening erythema to the left leg which apparently has resolved back to her baseline as both of her legs appear erythematous but she said this is better than it has been - continue abx and f/u with pcp for routine monitoring (10) Metabolic encephalopathy: Code(s): G93.41 - Metabolic encephalopathy Status: Acute Assessment and Plan: resolved.Secondary to infection and dehydration. 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 She says she cries every day. Yesterday she said she was not interested in therapy but when talking today to her she may consider contacting a therapist over the phone so she doesn't have to leave her house. She has tried BuSpar but I do not think it really helped according to the patient. She does not want to try any other medications. I would follow-up with Dr. Pickens, her primary care physician, and possibly some consider starting citalopram or another SSRI if she won't do therapy or maybe in addition to therapy. (12) Chronic atrial fibrillation: Code(s): I48.20 - Chronic atrial fibrillation, unspecified Status: Acute Assessment and Plan: Chronic and rate controlled -continue misbah and valentino DS: Summary Hospital Course Hospital Course: DOS 05/21/21 Pt is a 81 y/o female with atrial fibrillation, congestive heart failure, hypertension, coronary artery disease, and several other comorbidities who presented to the ED for generalized weakness. The patient
[2021-05-21 12:16] LABS: EDCOVIDSCREEN Negative (Negative)
--- NOTE | 2021-05-26 10:41 | PC.NURSE ---
Blood cx are negative.
== END 2021-05-21 13:35 | DRG 689 ==
LOC: ANHED 13:49 → ANH3MED 15:53
PROVIDERS: Physician Assistant; Admitting Provider Family Medicine; Emergency Provider Emergency Medicine; PCP Family Medicine; Visit Provider Internal Medicine
DX: N39.0 Urinary tract infection, site not specified (principal); G93.41 Metabolic encephalopathy; N17.9 Acute kidney failure, unspecified; I50.32 Chronic diastolic (congestive) heart failure; M62.82 Rhabdomyolysis; I48.20 Chronic atrial fibrillation, unspecified; L03.116 Cellulitis of left lower limb; B96.4 Proteus (mirabilis) (morganii) as the cause of diseases classified elsewhere; B96.1 Klebsiella pneumoniae [K. pneumoniae] as the cause of diseases classified elsewhere; Z20.822 Contact with and (suspected) exposure to COVID-19; E87.6 Hypokalemia; R79.89 Other specified abnormal findings of blood chemistry; E86.0 Dehydration; F43.29 Adjustment disorder with other symptoms; I11.0 Hypertensive heart disease with heart failure; I25.10 Atherosclerotic heart disease of native coronary artery without angina pectoris; E78.2 Mixed hyperlipidemia; I87.2 Venous insufficiency (chronic) (peripheral); Z87.11 Personal history of peptic ulcer disease; Z79.01 Long term (current) use of anticoagulants; Z90.49 Acquired absence of other specified parts of digestive tract; Z95.5 Presence of coronary angioplasty implant and graft; Z90.81 Acquired absence of spleen; Z90.710 Acquired absence of both cervix and uterus; Z90.722 Acquired absence of ovaries, bilateral; E66.9 Obesity, unspecified; Z68.36 Body mass index [BMI] 36.0-36.9, adult
CPT/HCPCS: 36415; 70450; 73030; 74176; 76705; 80048; 80053; 80074; 80076; 81001; 82550; 82607; 82948; 83605; 83735; 84100; 84443; 85025; 85027; 85610; 85730; 87040; 87077; 87086; 87088; 87186; 87426; 96361; 96365; 97110; 97161; 97166; 97530; 99285; A9270; C9803; G0378; J0696; J3475; J7030

== ENCOUNTER 2021-06-10 03:51 | Emergency (ER) | payer MEDICARE, SELFPAY ==
--- NOTE | ~2021-06-10 | CT_ITS ---
EXAMINATION: CT brain wo con DATE: 06/10/2021 04:33 INDICATION: Fall. Patient on anticoagulant therapy. Altered mental status. TECHNIQUE: Computed tomography (CT) of the head was performed without intravenous contrast. The mA wa s adjusted according to patient size. Iterative reconstruction technique was employed. Exam dose: 68 1.00 mGy-cm total exam DLP. COMPARISON: 05/17/2021 CT brain FINDINGS: Examination is limited by extensive streak motion artifact. Bilateral vertebral artery and carotid siphon and supraclinoid internal carotid artery calcifications . There is nonspecific prominent diminished attenuation of the subcortical and periventricular cerebr al white matter, likely due to chronic small vessel ischemic changes. There is central and cortical cerebral atrophy. No intracranial mass lesion or hemorrhage or recent cerebrovascular accident is evident. No midline s hift or mass effect. No subdural or epidural hematoma is detected. No fracture or bone destruction of the cranial vault is evident. There is a prominent mucous retention cyst or polyp along the lower anterior wall of left maxillary s inus and prominent posterior right ethmoid air cell opacification. IMPRESSION: Limited examination due to motion artifact Cerebral atherosclerosis and chronic small vessel ischemic changes of the cerebral white matter Central and cortical cerebral atrophy No acute intracranial finding or skull fracture is noted Reviewed, dictated and finalized at [facility] Reviewed, dictated and finalized at [facility] IMPRESSION: Limited examination due to motion artifact Cerebral atherosclerosis and chronic small vessel ischemic changes of the cereb ral white matter Central and cortical cerebral atrophy No acute intracranial finding or skull fracture is noted
[2021-06-10 03:55] VITALS: BP 132/70; PULSE 86; RESP 22; TEMP 37; O2SAT 93
[2021-06-10 03:58] VITALS: PULSE 87
--- NOTE | 2021-06-10 04:13 | ECG_ITS ---
Measurements Intervals [place] Rate: 87 P: NM: 0 QRS: 103 QRSD: 102 T: 70 QT: 392 QTc: 473 Interpretive Statements ATRIAL FIBRILLATION FREQUENT VENTRICULAR PREMATURE COMPLEXES BORDERLINE R WAVE PROGRESSION, ANTERIOR LEADS BORDERLINE T WAVE ABNORMALITY- HIGH LATERAL LEADS BASELINE ARTIFACT- I, II, III, AVR, AVL, AVF, V1-V2, V4-V6 ABNORMAL ECG Electronically Signed On 06-10-2021 6:43:13 THRESHING OPERATOR by Ever Archibald D.O.
[2021-06-10 05:01] VITALS: BP 126/79; PULSE 86; RESP 20; O2SAT 94
[2021-06-10 05:10] LABS: Basophils Absolute Auto 0.1 K/mm3 (0.0-0.1); Basophils Percent Auto 0.9 % (0.2-1.2); Eosinophils Absolute Auto 0.2 K/mm3 (0-0.3); Eosinophils Percent Auto 1.7 % (0-4.4); Hematocrit 32.6 % (37.0-47.0); Hemoglobin 10.4 g/dL (12.0-15.0); Immature Granulocyte Absolute 0.07 K/mm3 (0.00-0.031); Immature Granulocyte Percent A 0.6 % (0-0.5); Lymphocytes Absolute Auto 3.17 K/mm3 (0.9-3.2); Lymphocytes Percent Auto 26.9 % (18.3-44.2); Mean Corpuscular HGB Conc 31.9 g/dl (32-36); Mean Corpuscular Hemoglobin 29.8 pg (26-34); Mean Corpuscular Volume 93.4 fl (80-100); Mean Platelet Volume 9.4 fl (7.4-10.4); Monocytes Absolute Auto 2.1 K/mm3 (0.1-0.6); Monocytes Percent Auto 17.7 % (2.6-8.5); Neutrophils Absolute Auto 6.1 K/mm3 (1.3-6.7); Neutrophils Percent Auto 52.2 % (45.5-73.1); Nucleated Red Blood Cells Perc 0.3 % (0.0-0.2); Platelet Count Result 486 k/mm3 (150-375); Red Blood Count 3.49 M/mm3 (4.2-5.4); White Blood Count 11.8 K/mm3 (4.5-10.0)
[2021-06-10 05:11] LABS: Add Urine Microscopic? YES; Appearance Urine Turbid (Clear); Bilirubin Urine Negative (Negative); Blood Urine 1+ (Negative); Color Urine Yellow (Yellow); Glucose Urine UA Negative (Negative); Ketones Urine Negative (Negative); Leukocyte Esterase Ur 3+ LEU/UL (Negative); Mucus Urine Rare /lpf; Nitrate Urine Negative (Negative); Protein Urine 2+ mg/dL (Negative); Specific Grav Ur 1.011 (1.001-1.035); Squamous Epithelial Cell Urine Moderate /hpf (Few); Urobilinogen Urine Negative mg/dL (<2.0); WBC Clumps Urine Present /HPF; WBC Urine >75 /hpf
[2021-06-10 05:25] LABS: Alanine Aminotransferase 38 U/L (4-35); Albumin Level 2.9 g/dL (3.5-5.1); Alkaline Phosphatase 200 U/L (38-126); Anion Gap 5 mmol/L (8-16); Aspartate Amino Transferase 59 U/L (14-36); Bilirubin,Total 0.8 mg/dL (0.2-1.3); Blood Urea Nitrogen 13 mg/dL (7-17); Calcium 8.7 mg/dL (8.4-10.2); Carbon Dioxide 24 mmol/L (22-30); Chloride 108 mmol/L (98-107); Estimated CRCL calculation 43 ml/min; Estimated Glomerular Filt Rate 47; Glucose 118 mg/dL (65-110); Potassium 4.4 mmol/L (3.4-5.0); Sodium 137 mmol/L (137-145)
--- NOTE | 2021-06-10 05:28 | ED.AMS ---
HPI - Altered Mental Status General Chief Complaint: Weakness Stated Complaint: INCREASED WEAKNESS AND CONFUSION Time Seen by Provider: 06/10/21 05:20 Source: patient and EMS Mode of arrival: EMS Limitations: no limitations History of Present Illness HPI narrative: Patient is an 81-year-old female brought in by EMS due to altered mental status described as confusion accompanied by frequent falls at the [facility]. Patient upon arrival to the ER is awake and oriented x3. Patient denies any headache, dizziness, speech or visual disturbance, focal weakness or numbness, chest pain, shortness of breath, abdominal pain, nausea, vomiting, diarrhea, fever or chills. Related Data Home Medications Medication Instructions Recorded Confirmed multivitamin 1 tablet PO DAILY 06/11/20 05/18/21 potassium chloride 10 mEq 20 meq PO BID tablet 06/11/20 05/18/21 tablet,extended release simvastatin 20 mg tablet 20 mg PO DAILY 06/11/20 05/18/21 Allergies Allergy/AdvReac Type Severity Reaction Status Date / Time adhesive Allergy Mild Unknown Verified 05/08/21 11:49 tolnaftate AdvReac Severe Rash Verified 05/08/21 11:49 Review of Systems Review of Systems: All systems reviewed & are unremarkable except as noted in HPI and below Constitutional: Constitutional: Denies body ache(s), Denies chills, Denies excessive sweating, Denies fatigue, Denies fever(s), Denies headache(s), Denies lethargy, Denies malaise, Denies weakness and Denies weight loss Eyes: Eyes: Denies blurry vision, Denies change in vision and Denies loss of vision ENT: Denies dizziness, Denies ear discharge, Denies headache(s), Denies lip swelling, Denies epistaxis, Denies nasal congestion, Denies neck pain, Denies throat swelling and Denies tongue swelling Cardiovascular: Cardiovascular: Denies chest pain, Denies chest pain at rest, Denies chest pain with activity, Denies diaphoresis, Denies rapid heart rate, Denies edema, Denies irregular heart rhythm, Denies lightheadedness, Denies palpitations, Denies dyspnea and Denies dyspnea on exertion Respiratory: Respiratory: Denies chest congestion, Denies cough, Denies hemoptysis, Denies dyspnea and Denies dyspnea on exertion Gastrointestinal: Gastrointestinal: Denies abdominal pain, Denies melena, Denies hematochezia, Denies diarrhea, Denies nausea, Denies vomiting and Denies hematemesis Musculoskeletal: Musculoskeletal: Denies abnormal gait, Denies deformity, Denies joint swelling, Denies limited range of motion, Denies neck pain and Denies numbness Neurologic: Denies Abnormal speech present, Denies abnormal gait, Denies confusion, Denies dizziness, Denies headache(s), Denies focal weakness, Denies loss of vision, Denies numbness, Denies Other visual disturbances, Denies Sensory deficit (Neuro) and Denies weakness Psychiatric: Psychiatric: Denies confusion, Denies depression, Denies auditory hallucinations, Denies homicidal ideation and Denies suicidal ideation Endocrine: Endocrine: Denies cold intolerance, Denies excessive sweating, Denies fatigue, Denies heat intolerance and Denies palpitations Hematologic/Lymphatic: Hematologic/Lymphatic: Denies easy bleeding and Denies easy bruising Allergic/Immunologic: Allergic/Immunologic: Denies lip swelling, Denies throat swelling and Denies tongue swelling [facility] Past Medical History Medical History Chronic anticoagulation Chronic atrial fibrillation Chronic diastolic CHF (congestive heart failure) Coronary artery disease Essential hypertension History of bleeding peptic ulcer (2006) Mixed hyperlipidemia Prediabetes Hemoglobin A1c was 5.8% in December 2020. Stasis dermatitis of both legs Surgical History Surgical History History of cholecystectomy (2017) History of heart artery stent (2003) History of open reduction and internal fixation (ORIF) procedure (2011) Left ankle fractu
[2021-06-10 05:37] LABS: Troponin I < 0.012 ng/mL (0.000-0.034)
[2021-06-10] MEDS: SODIUM CHLORIDE 0.9% IV 1,000 ML 250 ML IV CONT (05:57)
--- NOTE | 2021-06-10 08:20 | PC.NURSE ---
Nelly ems to tile picker pt and return to [place] at [id number]
[2021-06-10 08:55] VITALS: BP 130/76; PULSE 86; RESP 20; O2SAT 96
== END 2021-06-10 08:57 ==
PROVIDERS: Emergency Provider Emergency Medicine; PCP Family Medicine
DX: R41.82 Altered mental status, unspecified (principal); N39.0 Urinary tract infection, site not specified; I48.91 Unspecified atrial fibrillation; I11.0 Hypertensive heart disease with heart failure; I50.9 Heart failure, unspecified; E78.5 Hyperlipidemia, unspecified
CPT/HCPCS: 36415; 70450; 80053; 81001; 84484; 85025; 87077; 87086; 87186; 93005; 96361; 96365; 99284; J0696; J7030

== ENCOUNTER 2021-07-17 09:39 | Emergency (ER) | payer MEDICARE, SELFPAY ==
--- NOTE | ~2021-07-17 | XR_ITS ---
EXAMINATION: XR knee LT min 4V DATE: 07/17/2021 12:19 INDICATION: Laceration at the anterior left knee TECHNIQUE: Anteroposterior, 2 oblique and crosstable lateral views of the left knee were obtained COMPARISON: None. FINDINGS: Alignment is normal. Diffuse osteopenia. No fracture. Joint spaces appear relatively preserved on non weightbearing imaging. No joint effusion/layering lipohemarthrosis. Soft tissues are unremarkable. No radiopaque foreign bodies. IMPRESSION: 1. No radiopaque foreign body, left knee joint effusion or acute osseous abnormality. Reviewed, dictated and finalized at [facility] IMPRESSION: 1. No radiopaque foreign body, left knee joint effusion or acute osseous abnorm ality.
[2021-07-17 09:41] VITALS: PULSE 85; RESP 15; TEMP 36.1; O2SAT 98
[2021-07-17 09:47] VITALS: BP 100/55
--- NOTE | 2021-07-17 11:59 | ED.WOUNDLAC ---
HPI - Wound/Laceration General Chief Complaint: Wound/Laceration Stated Complaint: Fall- left leg lac Time Seen by Provider: 07/17/21 10:41 Source: patient and EMS Mode of arrival: EMS Limitations: no limitations History of Present Illness HPI narrative: This is a 81 year old female that presents to the ER for laceration to the left leg sustained just prior to arrival. Patient was being transferred and her leg got caught on a wheelchair sustaining a laceration to the left below the knee. Unsure of last tetanus vaccination. Denies hitting her head, loss of consciousness, other injuries, decreased ROM or numbness. Related Data Home Medications Medication Instructions Recorded Confirmed multivitamin 1 tablet PO DAILY 06/11/20 05/18/21 potassium chloride 10 mEq 20 meq PO BID tablet 06/11/20 05/18/21 tablet,extended release simvastatin 20 mg tablet 20 mg PO DAILY 06/11/20 05/18/21 Allergies Allergy/AdvReac Type Severity Reaction Status Date / Time adhesive Allergy Mild Unknown Verified 07/17/21 09:45 tolnaftate AdvReac Severe Rash Verified 07/17/21 09:45 Review of Systems Review of Systems: CONSTITUTIONAL: Denies fever GASTROINTESTINAL: Denies vomiting SKIN: Reports laceration MUSCULOSKELETAL: Denies joint pain, or myalgia. NEUROLOGIC: Denies numbness, or weakness. All systems reviewed & are unremarkable except as noted in HPI and below PMFSH Past Medical History Medical History Chronic anticoagulation Chronic atrial fibrillation Chronic diastolic CHF (congestive heart failure) Coronary artery disease Essential hypertension History of bleeding peptic ulcer (2006) Mixed hyperlipidemia Prediabetes Hemoglobin A1c was 5.8% in December 2020. Stasis dermatitis of both legs Surgical History Surgical History History of cholecystectomy (2017) History of heart artery stent (2003) History of open reduction and internal fixation (ORIF) procedure (2011) Left ankle fracture. History of resection of small bowel (1973) Jejunal resection. History of splenectomy (1944) History of total abdominal hysterectomy and bilateral salpingo-oophorectomy (1979) Family History Family History Father Liver cancer Mother Congestive heart failure Other Cerebrovascular accident Family history of arthritis Social History Social History Social History: Surrogate decision maker: Darcy Lackey, daughter. Code status: Full code. Smoking status: Never smoker Second hand tobacco smoke exposure: No Alcohol intake: never Substance use: never Substance use type: does not use Additional living arrangements comments: The patient lives in her own home. She has 3 children. Additional occupation/education comments: Retired. Spiritual care concerns: No Exam Narrative: GENERAL: Well-appearing, well-nourished, and in no acute distress. HEAD: Normocephalic, atraumatic. EYES: PERRLA and EOMI. ENT: Nares clear, no rhinorrhea or epistaxis. Mucous membranes moist. Oropharynx without tonsillar hypertrophy exudate or other lesions. Bilateral TMs pearly manuel non-bulging NECK: Supple. No adenopathy or masses. CHEST: Clear to auscultation. No respiratory distress. No wheezes rales or rhonchi HEART: Regular rate and rhythm. No murmur heard. Normal peripheral pulses. EXTREMITIES: Normal range of motion. No edema or obvious deformity. Normal DP pulses. Normal sensation. 6 cm V-shaped laceration present below the left knee into subcutaneous tissue SKIN: Warm, dry, no rash. NEURO: No focal deficits. Alert and oriented x2. PSYCH: Normal mood and affect Course Vital Signs Vital signs: Vital Signs Temperature 97 F L 07/17/21 09:41 Pulse Rate 85 07/17/21 09:41 Respiratory Rate 15 07/17/21
--- NOTE | 2021-07-17 12:13 | PC.NURSE ---
xray at bedside.
[2021-07-17] MEDS: TETANUS,DIPHTHERIA,AC PERTUSSIS ADULT (0.5 ML) BOOSTRIX IM (12:18)
[2021-07-17 14:13] VITALS: BP 108/71; PULSE 80; RESP 16; O2SAT 98
--- NOTE | 2021-07-17 14:16 | PC.NURSE ---
[facility] has arrived
== END 2021-07-17 14:24 ==
PROVIDERS: Emergency Provider Emergency Medicine; PCP Family Medicine
DX: S81.812A Laceration without foreign body, left lower leg, initial encounter (principal); Z23 Encounter for immunization; I48.20 Chronic atrial fibrillation, unspecified; I50.32 Chronic diastolic (congestive) heart failure; I11.0 Hypertensive heart disease with heart failure; I25.10 Atherosclerotic heart disease of native coronary artery without angina pectoris; I87.2 Venous insufficiency (chronic) (peripheral); E78.2 Mixed hyperlipidemia; R73.03 Prediabetes; Z87.11 Personal history of peptic ulcer disease; Z79.01 Long term (current) use of anticoagulants; W22.8XXA Striking against or struck by other objects, initial encounter; Z95.5 Presence of coronary angioplasty implant and graft; Z90.81 Acquired absence of spleen
CPT/HCPCS: 12002; 73564; 90471; 90715; 99283

== ENCOUNTER 2021-08-23 00:05 | Emergency (ER) | payer MEDICARE, SELFPAY ==
[2021-08-23] VITALS (21 sets, daily range): BP systolic 117–119; BP diastolic 55–64; PULSE 62–64; RESP 16–18; TEMP 36.6; O2SAT 96–99
--- NOTE | ~2021-08-23 | CT_ITS ---
EXAMINATION: CT brain wo con DATE: 08/23/2021 00:42 INDICATION: Status post fall. Laceration. Patient on aliquots. TECHNIQUE: Computed tomography (CT) of the head was performed without intravenous contrast. The dose- length product was 605.33 mGy-cm. Automated exposure control and iterative reconstruction technique w ere employed. COMPARISON: CT dated 06/10/2021 FINDINGS: Generalized atrophy. There are scattered severe periventricular and subcortical white matte r changes, most likely related to small vessel ischemic disease (microangiopathy). There is intracran ial atherosclerosis. No acute intracranial hemorrhage, infarction, mass or mass effect. There is muco nicki thickening of the ethmoid and sphenoid sinuses. Small left mastoid effusion. IMPRESSION: 1. No acute intracranial abnormality. 2: Chronic age-related findings. Reviewed, dictated and finalized at location A.
--- NOTE | 2021-08-23 01:09 | ED.FALL ---
HPI - Fall General Chief Complaint: Fall Stated Complaint: witnessed GLF with head lac Time Seen by Provider: 08/23/21 00:05 Source: patient History of Present Illness HPI Narrative: 81-year-old female presenting to the emergency department for evaluation after having an unwitnessed ground-level fall at the group home. Patient is normally an ambulatory with assist. Patient states she was upset that no one had come to help her on her trip to the bathroom so she attempted to transfer to the wheelchair on her own and had a ground-level fall during which she struck the back of her head. Patient denies any loss of consciousness. Patient denies any other pain or injury. Patient did obtain a laceration to her posterior scalp. On arrival to the emergency department patient is alert oriented and at her normal baseline. Related Data Home Medications Medication Instructions Recorded Confirmed multivitamin 1 tablet PO DAILY 06/11/20 05/18/21 potassium chloride 10 mEq 20 meq PO BID tablet 06/11/20 05/18/21 tablet,extended release simvastatin 20 mg tablet 20 mg PO DAILY 06/11/20 05/18/21 Allergies Allergy/AdvReac Type Severity Reaction Status Date / Time adhesive Allergy Mild Unknown Verified 07/17/21 09:45 tolnaftate AdvReac Severe Rash Verified 07/17/21 09:45 Review of Systems Review of Systems: CONSTITUTIONAL: Denies fever, chills, or sweats. EYES: Denies visual changes, redness, or discharge. ENT: Denies rhinorrhea, congestion, sore throat, or otalgia. CARDIOVASCULAR: Denies chest pain, palpitations, or edema. RESPIRATORY: Denies cough or dyspnea. GASTROINTESTINAL: Denies abdominal pain, nausea, vomiting, or diarrhea. GENITOURINARY: Denies dysuria or hematuria. SKIN: Scalp laceration MUSCULOSKELETAL: Denies back pain, joint pain, or myalgia. NEUROLOGIC: Denies headache, numbness, or weakness. PSYCHIATRIC: Denies anxiety or depression. [facility] Past Medical History Medical History Chronic anticoagulation Chronic atrial fibrillation Chronic diastolic CHF (congestive heart failure) Coronary artery disease Essential hypertension History of bleeding peptic ulcer (2006) Mixed hyperlipidemia Prediabetes Hemoglobin A1c was 5.8% in December 2020. Stasis dermatitis of both legs Surgical History Surgical History History of cholecystectomy (2018) History of heart artery stent (2003) History of open reduction and internal fixation (ORIF) procedure (2011) Left ankle fracture. History of resection of small bowel (1973) Jejunal resection. History of splenectomy (1944) History of total abdominal hysterectomy and bilateral salpingo-oophorectomy (1979) Family History Family History Father Liver cancer Mother Congestive heart failure Other Cerebrovascular accident Family history of arthritis Social History Social History Social History: Surrogate decision maker: Darcy Lackey, daughter. Code status: Full code. Smoking status: Never smoker Second hand tobacco smoke exposure: No Alcohol intake: never Substance use: never Substance use type: does not use Additional living arrangements comments: The patient lives in her own home. She has 3 children. Additional occupation/education comments: Retired. Spiritual care concerns: No Exam Narrative: APPEARANCE: Well appearing, no pain, no distress, well-nourished. HEAD: normocephalic, 0.5 cm posterior scalp laceration, bleeding resolved. EYES: PERRLA/EOMI, conjunctivae clear. NOSE: Normal no drainage EARS:TMS clear with good light reflex. THROAT: Pharynx clear, no exudate. NECK: Supple. No adenopathy, no masses. RESPIRATORY: Airway patent, respirations nonlabored. Clear to auscultation bilaterally, no rales, rhonchi, wheez
== END 2021-08-23 06:55 ==
PROVIDERS: Emergency Provider Emergency Medicine; PCP Family Medicine
DX: S01.01XA Laceration without foreign body of scalp, initial encounter (principal); I48.20 Chronic atrial fibrillation, unspecified; Z79.01 Long term (current) use of anticoagulants; I50.32 Chronic diastolic (congestive) heart failure; I25.10 Atherosclerotic heart disease of native coronary artery without angina pectoris; I11.0 Hypertensive heart disease with heart failure; E78.2 Mixed hyperlipidemia; R73.03 Prediabetes; I87.2 Venous insufficiency (chronic) (peripheral); Z95.5 Presence of coronary angioplasty implant and graft; Z90.81 Acquired absence of spleen; W06.XXXA Fall from bed, initial encounter
CPT/HCPCS: 12001; 70450; 99284

== ENCOUNTER 2021-09-11 07:39 | Outpatient (RCR) | payer MEDICARE, SELFPAY ==
[2021-09-11] VITALS (10 sets, daily range): BP systolic 109–140; BP diastolic 59–77; PULSE 65–79; RESP 20–22; TEMP 36.1–36.3; O2SAT 93–97
[2021-09-11 08:26] LABS: Hematocrit 26.2 % (37.0-47.0); Hemoglobin 8.1 g/dL (12.0-15.0)
[2021-09-11] MEDS: SODIUM CHLORIDE 0.9% IV 250 ML 30 ML IV CONT (09:00)
[2021-09-11] MEDS: FUROSEMIDE INJ 40 MG/4 ML VIAL 20 MG IV PUSH (13:05)
== END 2021-12-10 23:59 | disposition home or self-care (01) ==
LOC: ANHCPCTRAN 07:39
PROVIDERS: PCP Family Medicine; Visit Provider Family Medicine
DX: D50.9 Iron deficiency anemia, unspecified (principal)
CPT/HCPCS: 36415; 36430; 85014; 85018; 86850; 86900; 86901; 86920; 96374; J1940; J7050; P9016